=== PATIENT | female | born 1990 | race Caucasian/White ===

== ENCOUNTER 2017-12-08 10:03 | Outpatient (CLI) | payer OTHER ==
--- NOTE | 2017-12-08 13:07 | MRI ---
BRAIN MRI WITH AND WITHOUT CONTRAST: Date: 12-08-17 Comparison: 09-09-16 History: Headache, re-evaluate pineal gland cyst. Technique: Multiplanar, multisequence MR imaging of the brain is provided with and without contrast. FINDINGS: The axial gradient echo imaging demonstrates no evidence for intracranial hemorrhage. The diffusion weighted imaging demonstrates no evidence for acute infarction. Imaged paranasal sinuses and mastoid air cells appear unremarkable. There is no midline shift, mass e ffect, or ventricular enlargement. Arterial flow voids at the axial level of the skull base appear grossly unremarkable on the T2 weight ed imaging. 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 The post contrast imaging demonstrates no abnormal enhancement within the brain parenchyma. There is a probable stable small arachnoid cyst at the level of the vertex superior to the left front al lobe. IMPRESSION: No acute findings - stable brain MRI as detailed above. POS: [facility]
== END 2017-12-08 10:04 | disposition home or self-care (01) ==
LOC: SCSMRI 10:03
PROVIDERS: ATTEND Student in an Organized Health Care Education/Training Program
DX: E34.8 Other specified endocrine disorders (principal); G43.719 Chronic migraine without aura, intractable, without status migrainosus
CPT/HCPCS: 70553